=== PATIENT | female | born 1985 | race Caucasian/White ===

== ENCOUNTER 2016-12-25 16:07 | Outpatient (CLI) | payer OTHER ==
[~2016-12-25 16:07] MED LIST: DICLEGIS DR 101 EACH PO; MACROBID100 MG PO; PRENATAL TABLE1 EAC3 PO
[2016-12-25 16:33] VITALS: BP 134/84
[2016-12-25 18:23] VITALS: BP 126/76
== END 2016-12-25 20:40 | disposition home or self-care (01) ==
LOC: LDRP-OP 16:07 → 2WEST 16:08
DX: Z03.79 Encounter for other suspected maternal and fetal conditions ruled out (principal); Z3A.24 24 weeks gestation of pregnancy; V49.9XXA Car occupant (driver) (passenger) injured in unspecified traffic accident, initial encounter
CPT/HCPCS: 59025; G0378

== ENCOUNTER 2017-03-22 14:06 | Outpatient (CLI) | payer OTHER ==
[2017-03-22 14:18] VITALS: BP 169/91
[2017-03-22 14:30] VITALS: BP 151/86
[2017-03-22] MEDS ORDERED: ZOVIRAX400 MG PO (14:38)
[2017-03-22 15:08] LABS: EOSINOPHIL (%) 2.4 % (0-5); EOSINOPHIL COUNT 0.2 K/uL (0-0.3); IMMATURE GRANULOCYTE (%) 0.4 % (0.0-0.7); INSTRUMENT ABS NEUTROPHIL CT 6.4 K/uL; LYMPHOCYTE COUNT 1.4 K/uL (1.0-2.8); MCH 26.7 PG (29.0-34.0); MCHC 32.3 G/DL (30.0-36.0); MCV 82.9 FL (83-99); MEAN PLAT.VOLUME 10.7 uM^3 (9.5-12.4); MONOCYTE (%) 11.7 % (3-12); MONOCYTE COUNT 1.1 K/uL (0-0.8); NEUTROPHIL COUNT 6.4 K/uL (1.8-6.4); PLATELET COUNT 267 K/uL (156-360); RBC DIS.WIDTH-SD 39.4 % (39-53); RED BLOOD COUNT 3.74 M/uL (3.80-5.20); WHITE BLOOD COUNT 9.1 K/uL (4.1-10.2)
[2017-03-22 15:25] LABS: ALKALINE PHOSPHATASE 192 IU/L (3-129); ANION GAP 10 MEQ/L (2-14); CHLORIDE 106 MEQ/L (99-109); GFR ESTIMATE (CALCULATED) > 59 mL/min/; GLUCOSE 98 mg/dL (70-99); SAMPLE HEMOLYSIS CHECK 0; SAMPLE ICTERIC CHECK 0; SAMPLE LIPEMIA CHECK 0; SODIUM 137 MEQ/L (136-147); TOTAL BILIRUBIN 0.2 MG/DL (0.0-1.0); UREA NITROGEN (BUN) 7 mg/dL (9-23)
[2017-03-22 15:57] VITALS: BP 141/81
[2017-03-22 16:29] LABS: UR CREATININE CONCENTRATION 60.6 MG/DL
== END 2017-03-22 16:50 | disposition home or self-care (01) ==
LOC: LDRP-OP 14:06 → 2WEST 14:07 → LDRP-OP 05-11 22:09
PROVIDERS: Nurse Practitioner
DX: O13.3 Gestational [pregnancy-induced] hypertension without significant proteinuria, third trimester (principal); Z3A.36 36 weeks gestation of pregnancy
CPT/HCPCS: 59025; 80053; 82570; 84156; 85025; G0378

== ENCOUNTER 2017-03-24 11:59 | Outpatient (CLI) | payer OTHER ==
[~2017-03-24 11:59] MED LIST changes: +ZOVIRAX400 MG PO
[2017-03-24 12:22] VITALS: BP 156/94
[2017-03-24 13:00] VITALS: BP 141/93
[2017-03-24 13:22] LABS: EOSINOPHIL (%) 1.4 % (0-5); EOSINOPHIL COUNT 0.1 K/uL (0-0.3); HEMATOCRIT 29.6 % (36.0-46.0); IMMATURE GRANULOCYTE (%) 0.5 % (0.0-0.7); INSTRUMENT ABS NEUTROPHIL CT 5.7 K/uL; LYMPHOCYTE COUNT 1.4 K/uL (1.0-2.8); MCH 26.8 PG (29.0-34.0); MCHC 32.1 G/DL (30.0-36.0); MCV 83.4 FL (83-99); MEAN PLAT.VOLUME 11.1 uM^3 (9.5-12.4); MONOCYTE (%) 12.4 % (3-12); NEUTROPHIL (%) 68.8 % (45-76); NEUTROPHIL COUNT 5.7 K/uL (1.8-6.4); PLATELET COUNT 246 K/uL (156-360); RBC DIS.WIDTH-CV 13.2 % (11.8-14.6); RBC DIS.WIDTH-SD 39.7 % (39-53); RED BLOOD COUNT 3.55 M/uL (3.80-5.20); WHITE BLOOD COUNT 8.3 K/uL (4.1-10.2)
[2017-03-24 13:33] VITALS: BP 135/82
[2017-03-24 13:51] LABS: ALKALINE PHOSPHATASE 176 IU/L (3-129); ANION GAP 10 MEQ/L (2-14); CHLORIDE 106 MEQ/L (99-109); GFR ESTIMATE (CALCULATED) > 59 mL/min/; GLUCOSE 78 mg/dL (70-99); SAMPLE HEMOLYSIS CHECK 0; SAMPLE ICTERIC CHECK 0; SAMPLE LIPEMIA CHECK 0; SODIUM 135 MEQ/L (136-147); TOTAL BILIRUBIN 0.2 MG/DL (0.0-1.0); UREA NITROGEN (BUN) 7 mg/dL (9-23)
[2017-03-24 13:58] VITALS: BP 154/90
[2017-03-24 14:45] VITALS: BP 133/74
== END 2017-03-24 15:50 | disposition home or self-care (01) ==
LOC: LDRP-OP 11:59 → 2WEST 12:00 → LDRP-OP 05-17 17:07
PROVIDERS: Midwife
DX: O13.3 Gestational [pregnancy-induced] hypertension without significant proteinuria, third trimester (principal); Z3A.36 36 weeks gestation of pregnancy
CPT/HCPCS: 59025; 80053; 82570; 84156; 85025; G0378

== ENCOUNTER 2017-03-27 11:17 | Outpatient (CLI) | payer OTHER ==
[2017-03-27 11:35] VITALS: BP 142/94
[2017-03-27 11:58] VITALS: BP 134/89
[2017-03-27 12:40] VITALS: BP 129/70
[2017-03-27 13:15] VITALS: BP 142/90
[2017-03-27 14:10] VITALS: BP 153/91
[2017-03-27 16:45] VITALS: BP 141/86
== END 2017-03-27 18:17 | disposition home or self-care (01) ==
LOC: LDRP-OP 11:17 → 2WEST 11:18 → LDRP-OP 05-17 15:55
PROVIDERS: Nurse Practitioner
PROC: 3E0P7GC Introduction of Other Therapeutic Substance into Female Reproductive, Via Natural or Artificial Opening (ICD-10-PCS; principal; 2017-03-27)
DX: O14.93 Unspecified pre-eclampsia, third trimester (principal); Z3A.34 34 weeks gestation of pregnancy
CPT/HCPCS: 59025; 82570; 84156; G0378

== ENCOUNTER 2017-03-29 10:39 | Inpatient (IN) | payer OTHER ==
[2017-03-29] VITALS (15 sets, daily range): BP systolic 124–166; BP diastolic 76–100
[~2017-03-29] VITALS: Ht 165.1 cm; Wt 84.0 kg
[2017-03-29 12:01] LABS: BASOPHIL COUNT 0.1 K/uL (0-0.1); EOSINOPHIL (%) 1.9 % (0-5); EOSINOPHIL COUNT 0.2 K/uL (0-0.3); HEMATOCRIT 33.4 % (36.0-46.0); IMMATURE GRANULOCYTE (%) 0.2 % (0.0-0.7); INSTRUMENT ABS NEUTROPHIL CT 6.2 K/uL; MCH 26.1 PG (29.0-34.0); MCHC 31.4 G/DL (30.0-36.0); MCV 82.9 FL (83-99); MEAN PLAT.VOLUME 10.9 uM^3 (9.5-12.4); MONOCYTE (%) 9.3 % (3-12); MONOCYTE COUNT 0.9 K/uL (0-0.8); NEUTROPHIL (%) 66.5 % (45-76); NEUTROPHIL COUNT 6.2 K/uL (1.8-6.4); PLATELET COUNT 281 K/uL (156-360); RBC DIS.WIDTH-CV 13.2 % (11.8-14.6); RBC DIS.WIDTH-SD 39.8 % (39-53); RED BLOOD COUNT 4.03 M/uL (3.80-5.20); WHITE BLOOD COUNT 9.3 K/uL (4.1-10.2)
[2017-03-29 12:27] LABS: UR CREATININE CONCENTRATION 93.4 MG/DL
[2017-03-29 12:43] LABS: ALKALINE PHOSPHATASE 213 IU/L (3-129); ANION GAP 10 MEQ/L (2-14); CHLORIDE 105 MEQ/L (99-109); GFR ESTIMATE (CALCULATED) > 59 mL/min/; GLUCOSE 78 mg/dL (70-99); SAMPLE HEMOLYSIS CHECK 0; SAMPLE ICTERIC CHECK 0; SAMPLE LIPEMIA CHECK 0; SODIUM 137 MEQ/L (136-147); TOTAL BILIRUBIN 0.2 MG/DL (0.0-1.0); UREA NITROGEN (BUN) 7 mg/dL (9-23); URIC ACID 4.6 mg/dL (3.1-9.2)
[2017-03-30] VITALS (26 sets, daily range): BP systolic 112–170; BP diastolic 61–95
[2017-03-31] VITALS (27 sets, daily range): BP systolic 115–163; BP diastolic 55–90
[2017-04-01] VITALS (14 sets, daily range): BP systolic 119–165; BP diastolic 67–101
[2017-04-01] MEDS ORDERED: MOTRIN800 MG PO (03:05)
[2017-04-02 06:56] LABS: BASOPHIL COUNT 0.1 K/uL (0-0.1); EOSINOPHIL (%) 3.7 % (0-5); EOSINOPHIL COUNT 0.5 K/uL (0-0.3); IMMATURE GRANULOCYTE (%) 0.4 % (0.0-0.7); IMMATURE GRANULOCYTE COUNT 0.1 K/uL; INSTRUMENT ABS NEUTROPHIL CT 7.1 K/uL; MCH 26.1 PG (29.0-34.0); MCHC 31.6 G/DL (30.0-36.0); MCV 82.5 FL (83-99); MEAN PLAT.VOLUME 11.7 uM^3 (9.5-12.4); MONOCYTE COUNT 1.6 K/uL (0-0.8); NEUTROPHIL (%) 57.3 % (45-76); NEUTROPHIL COUNT 7.1 K/uL (1.8-6.4); NRBC (%) 0.2 /100 WBC (0-0); PLATELET COUNT 209 K/uL (156-360); RBC DIS.WIDTH-CV 13.4 % (11.8-14.6); RBC DIS.WIDTH-SD 40.3 % (39-53)
[2017-04-02 06:57] LABS: RED BLOOD COUNT 3.03 M/uL (3.80-5.20); WHITE BLOOD COUNT 12.3 K/uL (4.1-10.2)
[2017-04-02 08:10] VITALS: BP 154/103
[2017-04-02] MEDS ORDERED: IRON325 M1 PO (11:06)
[2017-04-02 12:40] VITALS: BP 147/98
[2017-04-02 15:10] VITALS: BP 165/89
[2017-04-02 19:15] VITALS: BP 144/88
[2017-04-02 22:30] VITALS: BP 142/81
[2017-04-03 04:31] VITALS: BP 129/69
[2017-04-03 08:15] VITALS: BP 137/91
[2017-04-03] MEDS ORDERED: LABETALOL HCL100 MG PO (09:26)
== END 2017-04-03 13:48 | disposition home or self-care (01) | DRG 775 ==
LOC: LDRP-OP 10:39 → 2WEST 10:40 → LDRP-OP 05-11 19:33
PROVIDERS: Midwife; Nurse Practitioner
PROC: 3E033VJ Introduction of Other Hormone into Peripheral Vein, Percutaneous Approach (ICD-10-PCS; principal; 2017-04-01)
PROC: 10E0XZZ Delivery of Products of Conception, External Approach (ICD-10-PCS; principal; 2017-04-01)
PROC: 3E0P7GC Introduction of Other Therapeutic Substance into Female Reproductive, Via Natural or Artificial Opening (ICD-10-PCS; principal; 2017-04-01)
PROC: 10907ZC Drainage of Amniotic Fluid, Therapeutic from Products of Conception, Via Natural or Artificial Opening (ICD-10-PCS; principal; 2017-04-01)
DX: O14.04 Mild to moderate pre-eclampsia, complicating childbirth (principal); Z3A.37 37 weeks gestation of pregnancy; Z37.0 Single live birth; O99.824 Streptococcus B carrier state complicating childbirth; O69.1XX0 Labor and delivery complicated by cord around neck, with compression, not applicable or unspecified
CPT/HCPCS: 80053; 82570; 84156; 84550; 85025; C1755; G0378; J0290; J0595; J1580; J2405; J2540; J3010; J7050; J7120